=== PATIENT | male | born 1995 | race Caucasian/White ===

== ENCOUNTER 2021-10-01 03:55 | Emergency (ER) | payer BC ==
[~2021-10-01] VITALS: Ht 180.3 cm; Wt 82.0 kg
[2021-10-01] MEDS ORDERED: SODIUM CHLORIDE 0.9% 1,000 ML IV ONE (05:00)
[2021-10-01] MEDS ORDERED: ONDANSETRON HCL 4MG/2ML INJ IV ONE (05:15)
[2021-10-01 05:34] LABS: BASOPHILS % 0.3 % (0.0-2.0); EOSINOPHILS % 0.4 % (0.0-5.0); HEMOGLOBIN. 14.8 g/dL (14.0-18.0); LYMPHOCYTES % 7.9 % (20.0-50.0); MEAN CORPUSCULAR HEMOGLOBIN 31.7 pg (28.0-32.0); MEAN CORPUSCULAR VOLUME 93.9 fL (80.0-94.0); MEAN PLATELET VOLUME 10.9 fl (7.4-10.4); MONOCYTES % 9.7 % (2.0-8.0); NEUTROPHILS % 81.7 % (40.0-76.0); PLATELET 244 x1000/uL (130-400); RED BLOOD CELL COUNT 4.68 mill/uL (4.7-6.1); RED CELL DISTRIBUTION WIDTH 12.8 % (11.6-14.6)
[2021-10-01 05:40] LABS: CHLORIDE 96 mEq/L (98-107)
[2021-10-01 05:47] LABS: PHOSPHORUS 3.7 mg/dL (2.5-4.9)
[2021-10-01 05:50] LABS: BETA HYDROXYBUTYRATE 0.6 mMol/L (0.0-0.3)
[2021-10-01 06:02] LABS: BG BASE EXCESS 3.7 mmol/L (-2.0-2.0); BG CARBOXYHEMOGLOBIN 0.8 % (0.5-1.5); BG DEOXYHEMOGLOBIN 2.7 % (0.0-5.0); BG FRACTION INSPIRED OXYGEN 21; BG HCO3 ACT 28.3 mmol/L (22.0-26.0); BG METHEMOGLOBIN 0.4 % (0.0-1.5); BG OXYGEN SATURATION 97.3 % (92.0-98.5); BG OXYHEMOGLOBIN 96.1 % (94.0-97.0); BG PCO2 42.6 mmHg (35.0-45.0); BG PH 7.441 (7.350-7.450); BG PO2 88.9 mmHg (75.0-100.0); BG SAMPLE SITE LEFT RADIAL; BG TOTAL HEMOGLOBIN 15.3 g/dL (12.0-18.0); BG VENT MODE ROOM AIR
[2021-10-01] MEDS ORDERED: ONDA4TAB5 MT (07:04)
[2021-10-01] MEDS ORDERED: FAMO-135 MT (07:04)
[2021-10-01 07:12] VITALS: BP 138/90
[2021-10-01 07:58] LABS: CLARITY URINE CLEAR (CLEAR); COLOR URINE YELLOW (YELLOW); KETONES URINE 2+ (NEGATIVE); LEUKOCYTE ESTERASE URINE NEGATIVE (NEGATIVE); NITRITE URINE NEGATIVE (NEGATIVE); OCCULT BLOOD URINE NEGATIVE (NEGATIVE); PROTEIN URINE 2+ (NEGATIVE); SPECIFIC GRAVITY URINE 1.026 (1.005-1.030); UROBILINOGEN URINE 0.2 E.U./dL (0.2-1.0)
== END 2021-10-01 07:55 | disposition home or self-care (01) ==
LOC: ER 03:55
DX: R11.2 Nausea with vomiting, unspecified (principal); R79.89 Other specified abnormal findings of blood chemistry; E11.65 Type 2 diabetes mellitus with hyperglycemia; I10 Essential (primary) hypertension
CPT/HCPCS: 36415; 36600; 71045; 80053; 81003; 82010; 82375; 82805; 82962; 83605; 83735; 83930; 84100; 85025; 93005; 96361; 96374; 99285; J2405; J7030